=== PATIENT | female | born 2000 | race Caucasian/White ===

== ENCOUNTER 2018-10-19 00:55 | Emergency (ER) | payer OTHER ==
[~2018-10-19] VITALS: Ht 157.5 cm; Wt 43.9 kg
[~2018-10-19 00:55] MED LIST: PRED20TA PO; VALA10004 PO
[2018-10-19 01:12] VITALS: Ht 157.5 cm; Wt 43.9 kg
[2018-10-19] MEDS ORDERED: IBUP-1542 PO (02:51)
[2018-10-19 03:30] VITALS: BP 132/74; PULSE 66; RESP 18
--- NOTE | 2018-10-19 05:43 | ERD ---
ER Documentation Chief Complaint Chief Complaint states whenevel she takes norco has sob. no sob in intake. s/p dental work HPI 18-year-old female presents to the emergency department complaining of intermittent shortness of breath and feeling full body numbness and tingling after taking oxycodone. She states she had her wisdom teeth removed yesterday and was prescribed oxycodone. Every time she has taken this medication she feels a strange sensation in her body and has had some shortness of breath. She denies all symptoms currently. She has stopped taking this medication. No fevers, chills, or other symptoms reported at this time. ROS All systems reviewed and are negative except as per history of present illness. Medications Home Meds Active Scripts Ibuprofen* (Motrin*) 600 Mg Tab, 600 MG PO Q6, #30 TAB Prov:ERAN DUBOIS PA-C 10/19/18 valACYclovir HCl (Valtrex) 1,000 Mg Tablet, 1000 MG PO TID for 7 Days, TAB Prov:JALEN DUMONT NP 02/01/16 Prednisone* (Prednisone*) 20 Mg Tab, 60 MG PO DAILY for 7 Days, TAB Prov:JALEN DUMONT NP 02/01/16 Allergies Allergies: Coded Allergies: No Known Allergy (Unverified , 01/31/16) PMhx/Soc Medical and Surgical Hx: pt denies Medical Hx, pt denies Surgical Hx History of Surgery: No Anesthesia Reaction: No Hx Neurological Disorder: No Hx Respiratory Disorders: No Hx Cardiac Disorders: No Hx Psychiatric Problems: No Hx Miscellaneous Medical Probl: No Hx Alcohol Use: No Hx Substance Use: No Hx Tobacco Use: No FmHx Family History: No diabetes Physical Exam Vitals Vital Signs Date Temp Pulse Resp B/P (MAP) Pulse Ox O2 O2 Flow FiO2 Time Delivery Rate 10/19/18 97.6 66 18 132/74 100 03:30 (93) 10/19/18 97.7 85 18 123/83 99 01:12 (96) Physical Exam Const: No acute distress Head: Atraumatic Eyes: Normal Conjunctiva ENT: Normal External Ears, Nose and Mouth. Neck: Full range of motion. No meningismus. Resp: Clear to auscultation bilaterally Cardio: Regular rate and rhythm, no murmurs Abd: Soft, non tender, non distended. Normal bowel sounds Skin: No petechiae or rashes Ext: No cyanosis, or edema Neur: Awake and alert Psych: Normal Mood and Affect Procedures/MDM 18-year-old female presents to the emergency department with signs and symptoms most consistent with adverse reaction to oxycodone. No evidence of emergent pathology at this time. The patient is nontoxic and well-appearing with stable vital signs. She is in no acute distress. She can be safely discharged home with instructions to stop taking oxycodone. She will be given prescription for ibuprofen for pain instead. She can return here immediately for any new, worsening, or concerning symptoms. All questions answered at discharge. Departure Diagnosis: Primary Impression: Adverse drug reaction Condition: Fair Patient Instructions: Taking Medication Safely Referrals: [facility] YOU HAVE RECEIVED A MEDICAL SCREENING EXAM AND THE RESULTS INDICATE THAT YOU DO NOT HAVE A CONDITION THAT REQUIRES URGENT TREATMENT IN THE EMERGENCY DEPARTMENT. FURTHER EVALUATION AND TREATMENT OF YOUR CONDITION CAN WAIT UNTIL YOU ARE SEEN IN YOUR DOCTORS OFFICE WITHIN THE NEXT 1-2 DAYS. IT IS YOUR RESPONSIBILITY TO MAKE AN APPOINTMENT FOR FOLOW-UP CARE. IF YOU HAVE A PRIMARY DOCTOR --you should call your primary doctor and schedule an appointment IF YOU DO NOT HAVE A PRIMARY DOCTOR YOU CAN CALL OUR PHYSICIAN REFERRAL HOTLINE AT IF YOU CAN NOT AFFORD TO SEE A PHYSICIAN YOU CAN CHOSE FROM THE FOLLOWING [facility] [address] [facility]. [facility] [address] [facility] [facility] [address] [facility] [facility] [address] [facility]. [facility] [address] [facility]. [facility] [address] Additional Instructions: Call your primary care doctor TOMORROW for an appointment during the next 1-2 days.See the doctor sooner or return here if your condition worsens before your appointment time. ERAN DUBOIS PA-C Oct 19, 2018 05:43
== END 2018-10-19 03:31 | disposition home or self-care (01) ==
LOC: FTE 00:55
DX: R06.02 Shortness of breath (principal)
CPT/HCPCS: 99282